=== PATIENT | female | born 1955 | race Caucasian/White ===

== ENCOUNTER 2018-08-10 22:44 | Emergency (ER) | payer BC ==
[2018-08-10] MEDS ORDERED: Propofol 200 MG/20 ML SDV IV ONE (22:45)
--- NOTE | 2018-08-10 23:34 | EDM.PDOC ---
ED HPI GENERAL MEDICAL PROBLEM - General Chief Complaint: Upper Extremity Injury/Pain Stated Complaint: FELL, BROKEN WRIST [phone] Time Seen by Provider: 08/10/18 23:31 Source of Information: Reports: Patient History Limitations: Reports: No Limitations - History of Present Illness INITIAL COMMENTS - FREE TEXT/NARRATIVE: states fell while going down steps, did hit right face and right wrist, denies LOC, no N/V, got back up by self but right wrist looks broken. Right Wrist Pain Score (Numeric/FACES): 8 - Related Data Allergies Allergy/AdvReac Type Severity Reaction Status Date / Time No Known Allergies Allergy Verified 08/10/18 22:51 Home Meds: Home Meds Bimatoprost [LUMIGAN 0.01% Ophth Soln] 1 drop EYERT BEDTIME 08/10/18 [History] Dorzolamide/Timolol [Cosopt 2%-0.5% Ophth Soln] 1 drop EYERT DAILY 08/10/18 [ History] Sertraline HCl 100 mg PO DAILY 08/10/18 [History] atorvaSTATin Calcium [Atorvastatin Calcium] 20 mg PO DAILY 08/10/18 [History] Past Medical History HEENT History: Reports: Impaired Vision Cardiovascular History: Reports: High Cholesterol Gastrointestinal History: Reports: Cholelithiasis 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 ED EXAM, GENERAL - Physical Exam Exam: See Below Exam Limited By: No Limitations General Appearance: Alert, WD/WN, Mild Distress, Other (wirst pain) Eye Exam: Bilateral Eye: PERRL (pupils ER @ 4mm) Ears: Normal External Exam, Normal Canal, Hearing Grossly Normal, Normal TMs Nose: Normal Inspection Throat/Mouth: Normal Voice, No Airway Compromise Head: Other (no O/B, minimal right facial tenderness, jaw ROM normal) Neck: Non-Tender, Full Range of Motion Respiratory/Chest: No Respiratory Distress Cardiovascular: Regular Rate, Rhythm GI/Abdominal: Soft, Non-Tender Extremities: Other (right wrist deformed, NV wnl) Neurological: Alert, Oriented, Normal Cognition, Normal Gait, No Motor/Sensory Deficits Psychiatric: Normal Affect, Normal Mood Skin Exam: Warm, Dry, Normal Color Lymphatic: No Adenopathy ED TRAUMA EXTREMITY PROCEDURES - Joint Reduction Site: Other (right wrist) Sedation: Other (anaesthetist) Pre-Procedure NV Status: Normal Post-Procedure NV Status: Normal Technique: Traction/Counter Traction Number of Attempts: 1 Post-Reduction Imaging: Acceptably Reduced Joint Reduction Complications: No - Splinting Right Upper Extremity Splint Site: wrist Pre-Procedure NV Status: Normal Post-Procedure NV Status: Normal Splint Material: Aluminum-Foam Splint Design: Gutter Applied & Form Fitted By: Provider Provider Post-Splint Application NV Check: NV Status Normal, Other (acceptable) Complications: No Course - Vital Signs Last Recorded V/S: Last Vital Signs Temp 36.0 C 08/10/18 23:02 Pulse 69 08/10/18 23:02 Resp 18 08/10/18 23:02 BP 143/78 H 08/10/18 23:02 Pulse Ox 96 08/10/18 23:02 - Orders/Labs/Meds Orders: Active Orders 24 hr Category Date Time Status Wrist 2V Rt [CR] Urgent Exams 08/11/18 00:13 Taken Departure - Departure Time of Disposition: 00:50 Disposition: Home, Self-Care 01 Condition: Good Clinical Impression: Closed Colles' fracture Qualifiers: Encounter type: initial encounter Laterality: right Qualified Code(s): S52.531A - Colles' fracture of right radius, initial encounter for closed fracture - Discharge Information Referrals: PCP,None [Primary Care Provider] - Forms: ED Department Discharge Additional Instructions: 1) wear sling to keep arm elevated 2) ice intermittently for swelling 3) wear splint until see ortho 4) see clinic tomorrow for ORTHOPEDIC REFERRAL of COLLE'S FRACTURE rx given; vicodin 5/325mg tid prn x 12 - My Orders Last 24 Hours: My Active Orders 08/11/18 00:13 Wrist 2V Rt [CR] Urgent - Assessment/Plan Last 24 Hours: My Active Orders 08/11/18 00:13 Wrist 2V Rt [CR] Urgent
== END 2018-08-11 00:53 | disposition home or self-care (01) ==
LOC: DL.ED 22:44
DX: S52.531A Colles' fracture of right radius, initial encounter for closed fracture (principal); E78.00 Pure hypercholesterolemia, unspecified; F41.9 Anxiety disorder, unspecified; F32.9 Major depressive disorder, single episode, unspecified; W10.9XXA Fall (on) (from) unspecified stairs and steps, initial encounter; Z79.899 Other long term (current) drug therapy
CPT/HCPCS: 25605; 73100; 99283; J2704